=== PATIENT | female | born 1975 | race Caucasian/White ===

== ENCOUNTER → 2020-06-10 13:33 | Outpatient (CLI) | payer BC ==
--- NOTE | ~2020-06-10 | ST ---
PATIENT:JOSE ZAMORA MEDICAL RECORD: [id number] SEX: F LOCATION:[facility] ORDER #: ADMISSION DATE: 06/10/20 AGE OF PATIENT: 45 REFERRING PHYSICIAN: INTERPRETING PHYSICIAN: PETER WYNN MD DATE OF SERVICE: 06/10/2020 Baseline ECG is normal. Exercised for 3 minutes on a Rocky protocol. Maximum heart rate of 181 beats per minute, greater than 100% max predicted. No ECG changes of ischemia. No symptoms of ischemia. Normal blood pressure response to exercise. Poor exercise tolerance for age. IMPRESSION: Negative treadmill stress test with poor exercise tolerance. TRANSINT:[id number] Voice Confirmation ID: [id number] DOCUMENT ID: [id number] PETER WYNN MD CC: [id number] DICTATION DATE: 06/11/20905 PRODUCTION TECH: 06/12/20 0202 DEP CLI 06/10/20 [id number] [place] [address]
--- NOTE | ~2020-06-10 | EC ---
PATIENT:JOSE ZAMORA DATE OF SERVICE: 06/10/20 SEX: F MEDICAL RECORD: [id number] DATE OF : 75 [facility] AGE [facility] PAT[facility]: 45 ADMISSION DATE: 06/10/20 REFERRING PHYSICIAN: INTERPRETING PHYSICIAN: PETER WYNN MD ECHOCARDIOGRAM REPORT ECHO CHARGES 4 ECHO COMPLETE Date: 06/10/20 CLINICAL DIAGNOSIS: HEART MURMUR ECHOCARDIOGRAPHIC MEASUREMENTS (adult normal given) AC root (d.<3.7cm) 3.1 cm LV Septum d (<1.2 cm> 1.4 cm Valve Excursion 1.9 cm LV Septum (systole) 1.5 cm Left Atria (s.<4.0cm> 4.4 cm LVPW d(<1.2cm) 1.6 cm RV (d.<2.3cm) 3.5 cm LVPW (sytole) 1.7 cm LV diastole(<5.6CM) 4.4 cm MV E-F(>70mm/sec) cm LV systole 3.2 cm LVOT Diameter 2.3 cm MV exc.(>10mm) 1.5 cm Est.ejection fraction (50-75%) % DOPPLER: LVIT cm/sec A 95.0 cm/sec E 70.0 cm/sec LA cm/sec RVSP 20 mmHg LVOT 107 cm/sec AOP1/2T m/s Asc. 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 Mendoza TAPE# PACS Pericardial Effusion N DATE OF SERVICE: Adequate 2D, color-flow imaging, spectral Doppler, and M-Mode LVH is present. LV internal dimension is normal. Wall motion is normal. EF is greater than or equal to 55%. Aortic valve is tricuspid. No evidence of stenosis by Doppler interrogation. Left atrium is normal at 4.4 cm. Mitral valve shows no prolapse. Trace MR. Right side is grossly normal. Mild TR. TRANSINT:[id number] Voice Confirmation ID: [id number] DOCUMENT ID: [id number] ECHOCARDIOGRAM REPORT [id number] JOSE ZAMORA GREGORY A MD CC: [id number] DICTATION DATE: 06/11/20 1129 VP BUSINESS DEVELOPMENT: 06/11/202037 DEP CLI 06/10/20 [place] [id number] [place] [id number]
== END | disposition home or self-care (01) ==
LOC: D.HCCECHO 13:33
PROVIDERS: ATTEND Internal Medicine Interventional Cardiology
DX: R01.1 Cardiac murmur, unspecified (principal)